=== PATIENT | female | born 1960 | race Caucasian/White ===

== ENCOUNTER → 2016-10-10 | Outpatient (CLI) | payer BC, OTHER ==
--- NOTE | 2016-10-11 11:54 | MM ---
Reason for exam: screening (asymptomatic). Last mammogram was performed 1 year and 1 month ago. History: Patient is postmenopausal. Took hormonal contraceptives for 3 years beginning at age 22. Physical Findings: A clinical breast exam by your physician is recommended on an annual basis and results should be correlated with mammographic findings. MG Screening Mammo w CAD Bilateral CC and MLO view(s) were taken. Prior study comparison: August 27, 2015, right breast MG 3d work up w/cad RT. August 25, 2015, bilateral MG screening mammo w CAD. July 07, 2014, bilateral MG screening mammo w CAD. June 24, 2013, bilateral digital screening mammo w/CAD. The breast tissue is heterogeneously dense. This may lower the sensitivity of mammography. No significant changes when compared with prior studies. ASSESSMENT: Negative, BI-RAD 1 RECOMMENDATION: Routine screening mammogram of both breasts in 1 year.
== END | disposition home or self-care (01) ==
LOC: RADMAMWWP 07:36
PROVIDERS: ATTEND Obstetrics & Gynecology
DX: Z12.31 Encounter for screening mammogram for malignant neoplasm of breast (principal)

== ENCOUNTER → 2016-10-10 | Outpatient (CLI) | payer BC, OTHER ==
[2016-10-10 08:15] LABS: Basophils % (A) 1 %; CH 30.9; CHCM 33.6; Eosinophils # (A) 0.1 k/uL (0-0.7); Eosinophils % (A) 1 %; HCT 42.9 % (34.0-46.0); HDW 2.62; HGB 14.2 gm/dL (11.4-16.0); Luc % (Auto) 2; Lymphocytes # (A) 1.1 k/uL (1.0-4.8); Lymphocytes % (A) 23 %; MCH 30.6 pg (25.0-35.0); MCHC 33.1 g/dL (31.0-37.0); MCV 92.3 fL (80.0-100.0); Mean Platelet Volume 6.7; Monocytes # (A) 0.3 k/uL (0-1.0); Monocytes % (A) 5 %; Neutrophils # (A) 3.4 k/uL (1.3-7.7); Neutrophils % (A) 68 %; RBC 4.64 m/uL (3.80-5.40); WBC 4.9 k/uL (3.8-10.6); WBC (Perox) 5.57
[2016-10-10 08:32] LABS: ALT 45 U/L (9-52); AST 34 U/L (14-36); Alkaline Phosphatase 72 U/L (38-126); Anion Gap 7 mmol/L; Blood Urea Nitrogen 16 mg/dL (7-17); Calcium 9.5 mg/dL (8.4-10.2); Carbon Dioxide 29 mmol/L (22-30); Chloride 106 mmol/L (98-107); Cholesterol 208 mg/dL (<200); Glucose 101 mg/dL (74-99); HDL Cholesterol 65 mg/dL (40-60); Non-African American GFR(MDRD) >60 (>60 ml/min/1.73 sqM); Sodium 142 mmol/L (137-145); Total Bilirubin 0.7 mg/dL (0.2-1.3); Total Protein 6.9 g/dL (6.3-8.2); Triglycerides 68 mg/dL (<150)
== END ==
LOC: LABWHC1 07:17
PROVIDERS: ATTEND Internal Medicine
DX: Z00.00 Encounter for general adult medical examination without abnormal findings (principal)
CPT/HCPCS: 36415; 80053; 80061; 82306; 84439; 84443; 85025

== ENCOUNTER → 2017-10-09 | Outpatient (CLI) | payer BC, OTHER ==
[2017-10-09 09:48] LABS: Basophils % (A) 1 %; Eosinophils % (A) 1 %; HCT 42.5 % (34.0-46.0); HGB 13.8 gm/dL (11.4-16.0); Lymphocytes # (A) 0.9 k/uL (1.0-4.8); Lymphocytes % (A) 24 %; MCH 29.5 pg (25.0-35.0); MCHC 32.4 g/dL (31.0-37.0); MCV 90.8 fL (80.0-100.0); Mean Platelet Volume 6.7; Monocytes # (A) 0.2 k/uL (0-1.0); Monocytes % (A) 5 %; Neutrophils # (A) 2.6 k/uL (1.3-7.7); Neutrophils % (A) 66 %; Platelet Count 271 k/uL (150-450); RBC 4.68 m/uL (3.80-5.40); RDW 13.1 % (11.5-15.5); WBC 3.9 k/uL (3.8-10.6)
[2017-10-09 09:58] LABS: ALT 33 U/L (9-52); AST 22 U/L (14-36); Alkaline Phosphatase 88 U/L (38-126); Anion Gap 10 mmol/L; Blood Urea Nitrogen 18 mg/dL (7-17); Calcium 9.4 mg/dL (8.4-10.2); Carbon Dioxide 28 mmol/L (22-30); Chloride 104 mmol/L (98-107); Cholesterol 198 mg/dL (<200); Glucose 96 mg/dL (74-99); HDL Cholesterol 46 mg/dL (40-60); LDL Cholesterol,Calculated 129 mg/dL (0-99); Potassium 4.6 mmol/L (3.5-5.1); Sodium 142 mmol/L (137-145); Total Bilirubin 0.6 mg/dL (0.2-1.3); Total Protein 6.9 g/dL (6.3-8.2); Triglycerides 113 mg/dL (<150)
[2017-10-09 10:14] LABS: T4, Free (Free Thyroxine) 1.21 ng/dL (0.78-2.19)
== END | disposition home or self-care (01) ==
LOC: LABWHC1 09:03
PROVIDERS: ATTEND Internal Medicine
DX: Z00.00 Encounter for general adult medical examination without abnormal findings (principal); E78.5 Hyperlipidemia, unspecified; E55.9 Vitamin D deficiency, unspecified
CPT/HCPCS: 36415; 80053; 80061; 82306; 84439; 84443; 85025

== ENCOUNTER → 2017-11-10 | Outpatient (CLI) | payer BC, OTHER ==
--- NOTE | 2017-11-13 10:55 | MM ---
Reason for exam: screening (asymptomatic). Last mammogram was performed 1 year and 1 month ago. History: Patient is postmenopausal. Took hormonal contraceptives for 3 years beginning at age 22. Physical Findings: A clinical breast exam by your physician is recommended on an annual basis and results should be correlated with mammographic findings. MG Screening Mammo w CAD Bilateral CC and MLO view(s) were taken. Prior study comparison: October 10, 2016, bilateral MG screening mammo w CAD. August 27, 2015, right breast MG 3d work up w/cad RT. The breast tissue is heterogeneously dense. This may lower the sensitivity of mammography. No suspicious abnormality. No significant changes when compared with prior studies. ASSESSMENT: Negative, BI-RAD 1 RECOMMENDATION: Routine screening mammogram of both breasts in 1 year.
== END | disposition home or self-care (01) ==
LOC: RADMAMWWP 07:29
PROVIDERS: ATTEND Obstetrics & Gynecology
DX: Z12.31 Encounter for screening mammogram for malignant neoplasm of breast (principal)
CPT/HCPCS: 77067

== ENCOUNTER → 2017-11-21 | Outpatient (CLI) | payer BC, OTHER ==
--- NOTE | 2017-11-21 08:48 | US ---
EXAMINATION TYPE: US kidneys/renal and bladder DATE OF EXAM: 11/21/2017 COMPARISON: NONE CLINICAL HISTORY: 57-year-old female N30.21 Chronic cystitis. 2 UTIs. Family history of RCC. Technique: Multiple sonographic images of the kidneys and bladder are obtained. FINDINGS: Right Kidney: 9.0 x 3.9 x 5.3 cm without hydronephrosis. Left Kidney: 9.7 x 4.4 x 6.0 cm without hydronephrosis. Bladder: wnl Bilateral Jets seen: Yes IMPRESSION: No hydronephrosis.
== END | disposition home or self-care (01) ==
LOC: RADUSWWP 07:40
PROVIDERS: ATTEND Urology
DX: N30.21 Other chronic cystitis with hematuria (principal)
CPT/HCPCS: 76770

== ENCOUNTER → 2018-10-11 | Outpatient (CLI) | payer BC, OTHER ==
[2018-10-11 10:15] LABS: Basophils % (A) 1 %; Eosinophils # (A) 0.1 k/uL (0-0.7); Eosinophils % (A) 2 %; HCT 40.4 % (34.0-46.0); HGB 13.3 gm/dL (11.4-16.0); Lymphocytes # (A) 1.1 k/uL (1.0-4.8); Lymphocytes % (A) 33 %; MCHC 33.1 g/dL (31.0-37.0); MCV 90.7 fL (80.0-100.0); Mean Platelet Volume 6.8; Monocytes # (A) 0.2 k/uL (0-1.0); Monocytes % (A) 7 %; Neutrophils # (A) 1.8 k/uL (1.3-7.7); Neutrophils % (A) 56 %; Platelet Count 270 k/uL (150-450); RBC 4.45 m/uL (3.80-5.40); WBC 3.3 k/uL (3.8-10.6)
[2018-10-11 17:14] LABS: Albumin 4.4 g/dL (3.80-4.90); Albumin/Globulin Ratio 2.2 (1.60-3.17); Anion Gap 6.8 mmol/L (4.00-12.00); Calcium 9.3 mg/dL (8.7-10.3); Carbon Dioxide 26.2 mmol/L (21.6-31.8); LDL Cholesterol,Calculated 127.8 mg/dL (0.0-131.0); Potassium 4.6 mmol/L (3.5-5.5); Total Bilirubin 0.6 mg/dL (0.3-1.2); Total Protein 6.4 g/dL (6.2-8.2); VLDL Calculation 17.2 mg/dL (5.00-40.00)
[2018-10-11 17:18] LABS: T4, Free (Free Thyroxine) 1.1 ng/dL (0.80-1.80)
== END | disposition home or self-care (01) ==
LOC: LABWHC1 09:35
PROVIDERS: ATTEND Internal Medicine
DX: Z00.00 Encounter for general adult medical examination without abnormal findings (principal); E55.9 Vitamin D deficiency, unspecified; E78.5 Hyperlipidemia, unspecified
CPT/HCPCS: 36415; 80053; 80061; 82306; 84439; 84443; 85025

== ENCOUNTER → 2018-11-30 | Outpatient (CLI) | payer BC, OTHER ==
--- NOTE | 2018-12-04 09:24 | MM ---
Reason for exam: screening (asymptomatic). Last mammogram was performed 1 year and 1 month ago. History: Patient is postmenopausal. Took hormonal contraceptives for 3 years beginning at age 22. Physical Findings: A clinical breast exam by your physician is recommended on an annual basis and results should be correlated with mammographic findings. MG Screening Mammo w CAD Bilateral CC and MLO view(s) were taken. Prior study comparison: November 10, 2017, bilateral MG screening mammo w CAD. October 10, 2016, bilateral MG screening mammo w CAD. The breast tissue is heterogeneously dense. This may lower the sensitivity of mammography. There is no discrete abnormality. No significant changes when compared with prior studies. ASSESSMENT: Benign, BI-RAD 2 RECOMMENDATION: Routine screening mammogram of both breasts in 1 year.
== END ==
LOC: RADMAMWWP 07:32
PROVIDERS: ATTEND Obstetrics & Gynecology
DX: Z12.31 Encounter for screening mammogram for malignant neoplasm of breast (principal)
CPT/HCPCS: 77067

== ENCOUNTER → 2019-10-14 | Outpatient (CLI) | payer BC, OTHER ==
[2019-10-14 10:56] LABS: Basophils % (A) 0 %; Eosinophils % (A) 1 %; HGB 13.9 gm/dL (11.4-16.0); Lymphocytes # (A) 1.2 k/uL (1.0-4.8); Lymphocytes % (A) 30 %; MCH 29.6 pg (25.0-35.0); MCHC 33.1 g/dL (31.0-37.0); MCV 89.3 fL (80.0-100.0); Monocytes # (A) 0.2 k/uL (0-1.0); Monocytes % (A) 5 %; Neutrophils # (A) 2.5 k/uL (1.3-7.7); Neutrophils % (A) 62 %; Platelet Count 287 k/uL (150-450); RBC 4.71 m/uL (3.80-5.40); RDW 12.4 % (11.5-15.5); WBC 4.1 k/uL (3.8-10.6)
[2019-10-14 16:53] LABS: African American GFR (CKD) 94.9 (60.0-200.0); Albumin 4.5 g/dL (3.80-4.90); Albumin/Globulin Ratio 2.25 (1.60-3.17); Anion Gap 6.6 mmol/L (4.00-12.00); BUN/Creat Ratio 17.5 Ratio (12.00-20.00); Calcium 9.6 mg/dL (8.7-10.3); Carbon Dioxide 25.4 mmol/L (21.6-31.8); Chol/HDL Ratio 3.64; LDL Cholesterol,Calculated 123.8 mg/dL (0.0-131.0); Non-African American GFR(CKD) 81.8 (60.0-200.0); Potassium 5.1 mmol/L (3.5-5.5); Total Bilirubin 0.6 mg/dL (0.3-1.2); Total Protein 6.5 g/dL (6.2-8.2); VLDL Calculation 16.2 mg/dL (5.00-40.00)
[2019-10-14 17:01] LABS: T4, Free (Free Thyroxine) 1.4 ng/dL (0.80-1.80)
== END | disposition home or self-care (01) ==
LOC: LABWHC1 09:24
PROVIDERS: ATTEND Internal Medicine
DX: Z00.00 Encounter for general adult medical examination without abnormal findings (principal); E78.5 Hyperlipidemia, unspecified; E55.9 Vitamin D deficiency, unspecified
CPT/HCPCS: 36415; 80053; 80061; 82306; 84439; 84443; 85025

== ENCOUNTER → 2020-03-24 | Outpatient (CLI) | payer BC, OTHER ==
--- NOTE | 2020-03-25 12:04 | MM ---
Reason for exam: screening (asymptomatic). Last mammogram was performed 1 year and 4 months ago. History: Patient is postmenopausal. Took hormonal contraceptives for 3 years beginning at age 22. Physical Findings: A clinical breast exam by your physician is recommended on an annual basis and results should be correlated with mammographic findings. MG Screening Mammo w CAD Bilateral CC and MLO view(s) were taken. Prior study comparison: November 30, 2018, bilateral MG screening mammo w CAD. November 10, 2017, bilateral MG screening mammo w CAD. The breast tissue is heterogeneously dense. This may lower the sensitivity of mammography. No significant changes when compared with prior studies. ASSESSMENT: Benign, BI-RAD 2 RECOMMENDATION: Routine screening mammogram of both breasts in 1 year.
== END | disposition home or self-care (01) ==
LOC: RADMAMWWP 07:00
PROVIDERS: ATTEND Obstetrics & Gynecology
DX: Z12.31 Encounter for screening mammogram for malignant neoplasm of breast (principal)
CPT/HCPCS: 77067

== ENCOUNTER → 2020-10-27 | Outpatient (CLI) | payer BC, OTHER ==
[2020-10-27 19:45] LABS: Basophils # (A) 0.03 X 10*3/uL (0.00-0.10); Basophils % (A) 0.6 %; Eosinophils # (A) 0.05 X 10*3/uL (0.04-0.35); HCT 44.4 % (37.2-46.3); HGB 14.3 g/dL (12.0-15.0); Lymphocytes # (A) 1.54 X 10*3/uL (0.90-5.00); Lymphocytes % (A) 29.7 %; MCH 29.9 pg (27.0-32.0); MCHC 32.2 g/dL (32.0-37.0); MCV 92.7 fL (80.0-97.0); Mean Platelet Volume 10.1 fL (9.5-12.2); Monocytes # (A) 0.41 X 10*3/uL (0.20-1.00); Monocytes % (A) 7.9 %; Neutrophils # (A) 3.15 X 10*3/uL (1.80-7.70); Neutrophils % (A) 60.6 %; Platelet Count 292 X 10*3/uL (140-440); RBC 4.79 X 10*6/uL (4.10-5.20); RDW 12.8 % (11.5-14.5); WBC 5.19 X 10*3/uL (4.50-10.00)
[2020-10-27 21:00] LABS: T4, Free (Free Thyroxine) 1.1 ng/dL (0.80-1.80)
[2020-10-27 22:24] LABS: African American GFR (CKD) 71.9 (60.0-200.0); Albumin 4.6 g/dL (3.80-4.90); Anion Gap 11.3 mmol/L (4.00-12.00); Calcium 9.7 mg/dL (8.7-10.3); Carbon Dioxide 24.7 mmol/L (21.6-31.8); Chol/HDL Ratio 3.86; Globulin 2.3 g/dL (1.6-3.3); Non-African American GFR(CKD) 62.1 (60.0-200.0); Potassium 5.5 mmol/L (3.5-5.5); Total Bilirubin 0.5 mg/dL (0.2-1.2); Total Protein 6.9 g/dL (6.2-8.2)
== END | disposition home or self-care (01) ==
LOC: LABWHC1 10:14
PROVIDERS: ATTEND Internal Medicine
DX: Z00.00 Encounter for general adult medical examination without abnormal findings (principal)
CPT/HCPCS: 36415; 80053; 80061; 84439; 84443; 85025

== ENCOUNTER → 2021-03-13 | Outpatient (CLI) | payer BC, OTHER ==
[2021-03-13 08:43] LABS: Basophils % (A) 1 %; Eosinophils # (A) 0.1 k/uL (0-0.7); Eosinophils % (A) 1 %; HCT 42.4 % (34.0-46.0); HGB 14.7 gm/dL (11.4-16.0); Lymphocytes % (A) 23 %; MCH 32.1 pg (25.0-35.0); MCHC 34.7 g/dL (31.0-37.0); MCV 92.3 fL (80.0-100.0); Mean Platelet Volume 7.4; Monocytes # (A) 0.3 k/uL (0-1.0); Monocytes % (A) 6 %; Neutrophils % (A) 68 %; Platelet Count 270 k/uL (150-450); RBC 4.59 m/uL (3.80-5.40); RDW 12.4 % (11.5-15.5); WBC 4.5 k/uL (3.8-10.6)
[2021-03-13 08:52] LABS: African American GFR (CKD) >90 (>60 ml/min/1.73 sqM); Anion Gap 6 mmol/L; Blood Urea Nitrogen 20 mg/dL (7-17); Carbon Dioxide 25 mmol/L (22-30); Chloride 107 mmol/L (98-107); Glucose 100 mg/dL (74-99); Non-African American GFR(CKD) 83 (>60 ml/min/1.73 sqM); Potassium 4.5 mmol/L (3.5-5.1); Sodium 138 mmol/L (137-145)
== END | disposition home or self-care (01) ==
LOC: LABPAT 07:59
PROVIDERS: ATTEND Obstetrics & Gynecology
DX: Z01.812 Encounter for preprocedural laboratory examination (principal); N81.10 Cystocele, unspecified; N81.6 Rectocele
CPT/HCPCS: 80051; 82565; 82947; 84520; 85025; 87077; 87086; 87186; 93005

== ENCOUNTER 2021-03-23 05:39 | Observation (INO) | payer BC, OTHER ==
[2021-03-18 11:10] VITALS: BMI 27.7
[~2021-03-23 05:39] MED LIST: DEXAMETHASONE SOD PHOSPHATE 4 MG/ML 1 ML VIAL IV ONE; LACTATED RINGERS 1,000 ML IV SCH; LIDOCAINE 1% (10MG/ML) FOR IV START INTRADERMA PRN; SCOPOLAMINE 1.5MG/72HR PATCH TRANSDERM ONE
[2021-03-23] MEDS ORDERED: ONDANSETRON 4 MG/2 ML VIAL IVP PRN ×2 (07:00→08:38)
[2021-03-23] MEDS ORDERED: HYDROmorphone 0.5 MG/0.5 ML SYRINGE IVP PRN (07:00)
[2021-03-23] MEDS ORDERED: MIDAZOLAM 2 MG/2 ML VIAL IVP ONE ×2 (07:22)
[2021-03-23] MEDS ORDERED: fentaNYL (PF) 50 MCG/ML 2 ML AMP IVP ONE (07:22)
[2021-03-23] MEDS ORDERED: ePHEDrine SULFATE/0.9% NACL/PF 50 MG/5 ML SYRINGE IV ONE (07:30)
[2021-03-23] MEDS ORDERED: SUCCINYLCHOLINE CHLORIDE 100 MG/5 ML SYR IV ONE (07:30)
[2021-03-23] MEDS ORDERED: MORPHINE SULFATE (PF) 0.3 MG/0.3 ML SYR ONE (07:30)
[2021-03-23] MEDS ORDERED: PROPOFOL 10 MG/ML 20 ML VIAL IV ONE (07:30)
[2021-03-23] MEDS ORDERED: LIDOCAINE 1% INJ 10MG/ML (20 ML MDV) ONE (07:30)
[2021-03-23] MEDS ORDERED: MIDAZOLAM 2 MG/2 ML VIAL ONE (07:30)
[2021-03-23] MEDS ORDERED: VASOPRESSIN 20 UNIT/ML 1 ML VIAL SQ ONE (07:51)
[2021-03-23] MEDS ORDERED: BACITRACIN ZINC 500 UNIT/GM OINT 28.4 GM TUBE TOPICAL ONE ×2 (08:09→08:26)
[2021-03-23] MEDS ORDERED: LACTATED RINGERS 1,000 ML IV ONE (08:25)
[2021-03-23] MEDS ORDERED: SIMETHICONE 80 MG CHEWABLE PO PRN (08:38)
[2021-03-23] MEDS ORDERED: METOCLOPRAMIDE 5 MG/ML 2 ML VIAL IVP PRN (08:38)
[2021-03-23] MEDS ORDERED: IBUPROFEN 600 MG TAB PO PRN (08:38)
[2021-03-23] MEDS ORDERED: diphenhydrAMINE 50 MG/ML 1 ML VIAL IVP PRN (08:38)
[2021-03-23] MEDS ORDERED: ONDANSETRON 4 MG/2 ML VIAL ONE (08:46)
[2021-03-23] MEDS ORDERED: ONDANSETRON 4 MG/2 ML VIAL IVP ONE (08:50)
--- NOTE | 2021-03-23 08:50 | P.OP ---
Date of Procedure: 03/23/21 Preoperative Diagnosis: #1. Symptomatic cystocele #2. Symptomatic rectocele Postoperative Diagnosis: Same Procedure(s) Performed: #1. Anterior colporrhaphy #2. Posterior colporrhaphy Anesthesia: FIDELINA Surgeon: Rich Mckeon Carousel Attendant #1: Sylvia Funk Estimated Blood Loss (ml): 50 IV fluids (ml): 800 Urine output (ml): 50 Pathology: none sent Condition: stable Disposition: PACU Operative Findings: Preoperatively, the patient was noted to have a grade 3 cystocele at rest and grade 2+ rectocele. The uterus appeared to be recently well supported prior to anesthesia. The uterus was left in place secondary to a significant history of multiple abdominal surgeries with ruptured diverticular abscess and the significant concern for possible and probable adhesive disease involving the pelvic organs. Clear yolanda urine was noted both before and after the case. Description of Procedure: The patient was prepped and draped in usual fashion after general endotracheal anesthesia was administered by the anesthesiologist. A weighted speculum was placed and the bladder was drained of approximately 50 mL of clear yolanda urine. The vaginal mucosa above and lateral to the cervix was grasped with Allis clamps and the vesicovaginal mucosa infused with diluted Pitressin solution. An incision was made from angle to angle above the cervix with a scalpel and the Allis clamps moved closer to the midline. The vesicovaginal mucosa was then undermined in the midline using a Metzenbaum scissors and divided from the cervical apex to the urethral apex. The mucosa was then dissected both sharply and bluntly from the underlying tissues. A Lafleur catheter was then placed and clear yolanda urine noted. After adequate dissection had been carried out, serial Pau plication stitches were placed from the urethral apex to the cervical apex using 2-0 PDS. The intervening redundant vaginal mucosa was trimmed from the cervix to the urethral apex and discarded bilaterally. The mucosa was then closed with a running locking stitch of 2-0 Vicryl from the urethral apex to the cervix. The repair appeared excellent. The weighted speculum was then removed and Allis clamps placed approximately 3-4 cm apart on the hymeneal ring at approximately 5:00 and 7:00. The rectovaginal mucosa was then infused with diluted Pitressin solution from the external margin to the apex of the intended dissection. A scalpel was utilized to remove a triangle shaped wedge of skin over the perineal body which was discarded. The Allis clamps were moved more to the midline and the rectovaginal mucosa undermined in the midline and divided using Metzenbaum scissors to the apex of the dissection with Allises placed along the margins. The rectovaginal mucosa was then sharply and bluntly dissected from the underlying tissues. Once adequate dissection had been carried out, serial Pau plication stitches were placed from the apex of the dissection to the vaginal opening with 2-0 PDS. Again, the intervening redundant vaginal mucosa was trimmed and discarded. The vaginal mucosa was then closed with a running locking stitch of 2-0 Vicryl from the apex to the vaginal opening. The remaining open tissue over the perineal body was closed continuously with the vaginal closure in the standard fashion of perineoplasty. The repair again appeared to be excellent. The vagina was packed with one-inch iodophor gauze covered with bacitracin ointment. Estimated blood loss for the entire case was approximately 50 mL. There were no complications. All sponge, instrument, and needle counts were correct. The patient tolerated the procedure well and proceeded to the recovery room in stable condition.
[2021-03-23] MEDS: LACTATED RINGERS 1,000 ML IV SCH ×2 (10:26→15:40)
[2021-03-23] MEDS ORDERED: ALBUTEROL NEBULIZED 2.5 MG/3 ML INHALATION PRN (10:30)
[2021-03-23] MEDS ORDERED: ALPRAZolam 0.25 MG TAB PO PRN (10:30)
[2021-03-23] MEDS ORDERED: LORATADINE 10 MG TAB PO PRN (10:30)
[2021-03-23] MEDS: SENNOSIDES-DOCUSATE SODIUM 1 EACH TAB PO SCH ×2 (10:47→21:42)
[2021-03-23] MEDS ORDERED: PROAIR 90 MCG INHALATION PRN (10:57)
[2021-03-23] MEDS ORDERED: ALLEGRA PO PRN (10:59)
--- NOTE | 2021-03-23 11:14 | P.ANPRN ---
Procedure Note - Anesthesia - Epidural/Spinal Spinal Time Out Performed: Yes Date of Procedure: 03/23/21 Procedure Start Time: Procedure Stop Time: Location of Patient: PreOp Indication: Acute Post-Operative Pain Sedation Type: Sedate with meaningful contact maintained Preparation: Sterile Prep Position: Sitting Catheter: None Needle Guage: 25 Injectate: Other (Duramorph 300 mcg + fentanyl 25mcg) Blood Aspirated: No Pain Paresthesia on Injection Noted: No Events: Uneventful and Well Tolerated
[2021-03-23] MEDS: NITROFURANTOIN MONOHYD/M-CRYST 100 MG CAP PO SCH ×2 (11:29→20:05)
[2021-03-23 15:47] VITALS: BP 107/66; PULSE 77; TEMP 98.3
[2021-03-23] MEDS: CALCIUM CARBONATE 500 MG CHEWABLE PO PRN ×2 (15:58→19:59)
[2021-03-23 15:59] VITALS: RESP 15
[2021-03-23] MEDS ORDERED: PANTOPRAZOLE 40 MG TABLET PO SCH ×2 (18:00→21:00)
[2021-03-23] MEDS: KETOROLAC 15 MG/ML 1 ML VIAL IVP PRN (18:22)
[2021-03-23] MEDS ORDERED: SYMBICORT 160-4.5 MCG INHALER INHALATION SCH (20:00)
[2021-03-23] MEDS ORDERED: SYMBICORT INHALATION SCH (20:00)
[2021-03-23] MEDS ORDERED: MONTELUKAST 10 MG TAB PO SCH (21:00)
[2021-03-24] MEDS: KETOROLAC 15 MG/ML 1 ML VIAL IVP PRN ×2 (01:07→06:07)
[2021-03-24] MEDS: LACTATED RINGERS 1,000 ML IV SCH (01:14)
[2021-03-24 06:11] LABS: Basophils % (A) 0 %; Eosinophils % (A) 0 %; HCT 38.7 % (34.0-46.0); HGB 12.9 gm/dL (11.4-16.0); Lymphocytes % (A) 11 %; MCH 31.2 pg (25.0-35.0); MCHC 33.3 g/dL (31.0-37.0); MCV 93.7 fL (80.0-100.0); Mean Platelet Volume 7.5; Monocytes # (A) 0.6 k/uL (0-1.0); Monocytes % (A) 6 %; Neutrophils # (A) 7.8 k/uL (1.3-7.7); Neutrophils % (A) 82 %; Platelet Count 234 k/uL (150-450); RBC 4.13 m/uL (3.80-5.40); RDW 12.7 % (11.5-15.5); WBC 9.6 k/uL (3.8-10.6)
[2021-03-24] MEDS: NITROFURANTOIN MONOHYD/M-CRYST 100 MG CAP PO SCH (07:49)
--- NOTE | 2021-03-24 08:56 | P.DS ---
Providers Date of admission: 03/24/21 01:29 Expected date of discharge: 03/24/21 Attending physician: Rich Mckeon Primary care physician: Vaibhav Eric - Discharge Diagnosis(es) (1) Cystocele Current Visit: Yes Status: Acute (2) Rectocele Current Visit: Yes Status: Acute Hospital Course: The patient is a 61-year-old multiparous woman who presented the office with relatively long-standing history of known cystocele or rectocele which is increased over the last 6 months to year to the point that it is significantly more uncomfortable this time and symptomatic in nature. She does report that occasionally her bladder bulges 2 and perhaps slightly beyond the opening the vagina. Examination the office demonstrated the uterus to be adequately supported. She also has an extensive history of significant abdominal surgery with a ruptured diverticular abscess subsequent loss to me and taken with reanastomosis. As a result, we will opted not to enter the abdomen under current circumstances and repair only the defects. She has requested definitive therapy for her prolapse. She was taken the operating room where she underwent anterior and posterior colporrhaphy in an incompetent fashion. Her postoperative course has been unremarkable to she did have some nausea for most of daily surgery. She was tolerating regular diet by the morning of postoperative day #1. She did have her catheter removed and was only able to void half of her urine volume on the first attempt. Further attempts are pending and we will make certain that she is able to void at least two thirds of her volume prior to being discharged. She has otherwise been deemed stable for discharge on post operative day #2 and will be discharged home to follow-up in the office in 2 weeks for recheck in 6 weeks routinely. Discharge instructions included calling for any significantly increased bleeding, fever, pain, or any other conditions that concerned her. Her primary instruction was to do no heavy lifting over the next 6-8 weeks and to abstain from anything in the vagina over the same period of time. She understood her instructions and agrees follow up as noted above. Discharge medications included only her normal home medications as well as [id number] analgesic pain medications as needed. Discharge hemoglobin and hematocrit were 12.9 and 30.7 respectively. Procedures: #1. Anterior colporrhaphy #2. Posterior colporrhaphy Patient Condition at Discharge: Stable Plan - Discharge Summary Discharge Rx Participant: No New Discharge Prescriptions: No Action Montelukast [Singulair] 10 mg PO HS Fluticasone Propionate [Flonase] 1 spray EA NOSTRIL HS Aspirin 81 mg PO DAILY Esomeprazole Magnesium [NexIUM] 40 mg PO HS Calcium Carbonate/Vitamin D3 [Calcium 600 mg-Vit D3 10 mcg (400 Unit)] 1 each PO BID Budesonide-Formot 160-4.5 Mcg [Symbicort 160-4.5 Mcg Inhaler] 1 puff INHALATION HS Atorvastatin [Lipitor] 10 mg PO HS Albuterol Sulfate [Proair Hfa] 1 - 2 puff INHALATION Q6HR PRN PRN Reason: asthma sx ALPRAZolam [Xanax] 0.25 mg PO TID PRN PRN Reason: Anxiety Nitrofurantoin Monohyd/M-Cryst [Macrobid] 100 mg PO Q12HR Ibuprofen [Advil] 200 mg PO Q8HR PRN PRN Reason: Pain Cholecalciferol [Vitamin D3 (25 Mcg = 1000 Iu)] 50 mcg PO DAILY Fexofenadine HCl [Teresita Allergy] 60 mg PO BID PRN PRN Reason: allergy sx polyethylene glycoL 3350 [Miralax] 17 gm PO DAILY PRN PRN Reason: Constipation Discharge Medication List Aspirin 81 mg PO DAILY 01/17/14 [History] Esomeprazole Magnesium [NexIUM] 40 mg PO HS 01/17/14 [History] Fluticasone Propionate [Flonase] 1 spray EA NOSTRIL HS 01/17/14 [History] Montelukast [Singulair] 10 mg PO HS 01/17/14 [History] ALPRAZolam [Xanax] 0.25 mg PO TID PRN 03/18/21 [History] Albuterol Sulfate [Proair Hfa] 1 - 2 puff INHALATION Q6HR PRN 03/18/21 [History] Atorvastatin [Lipitor] 10 mg PO HS 03/18/21 [History] Budesonide-Formot 160-4.5 Mcg [Symbicort 160-4.5 Mcg Inhaler] 1 puff INHALATION HS 03/18/21 [History] Calcium Carbonate/Vitamin D3 [Calcium 600 mg-Vit D3 10 mcg (400 Unit)] 1 each PO BID 03/18/21 [History] Cholecalciferol [Vitamin D3 (25 Mcg = 1000 Iu)] 50 mcg PO DAILY 03/18/21 [History] Fexofenadine HCl [Teresita Allergy] 60 mg PO BID PRN 03/18/21 [History] Ibuprofen [Advil] 200 mg PO Q8HR PRN 03/18/21 [History] Nitrofurantoin Monohyd/M-Cryst [Macrobid] 100 mg PO Q12HR 03/18/21 [History] polyethylene glycoL 3350 [Miralax] 17 gm PO DAILY PRN 03/18/21 [History] Follow up Appointment(s)/Referral(s): Rich Mckeon MD [STAFF PHYSICIAN] - 2 Weeks Discharge Disposition: HOME SELF-CARE
--- NOTE | 2021-03-24 09:09 | P.PN ---
Progress Note - Text 03/24/21 633am 52 year old female s/p rectocoele repair,pt seen and evaluated for post op pain control, pt has a vas of 0. she has no c/o n/v or pruritis.doing well, going home today.
== END 2021-03-24 10:20 | disposition home or self-care (01) ==
LOC: OR 05:39 → 4FBP 09:40 → OR 03-24 01:29
PROVIDERS: ADMIT Obstetrics & Gynecology; ATTEND Obstetrics & Gynecology
DX: N81.11 Cystocele, midline (principal); N81.6 Rectocele; J45.909 Unspecified asthma, uncomplicated; E78.5 Hyperlipidemia, unspecified; K21.9 Gastro-esophageal reflux disease without esophagitis; F41.9 Anxiety disorder, unspecified; F32.9 Major depressive disorder, single episode, unspecified; Z79.51 Long term (current) use of inhaled steroids; Z79.899 Other long term (current) drug therapy; Z88.0 Allergy status to penicillin; Z88.5 Allergy status to narcotic agent; Z87.19 Personal history of other diseases of the digestive system; Z86.718 Personal history of other venous thrombosis and embolism; Z90.49 Acquired absence of other specified parts of digestive tract; Z98.890 Other specified postprocedural states; Z83.3 Family history of diabetes mellitus; Z80.51 Family history of malignant neoplasm of kidney; Z82.49 Family history of ischemic heart disease and other diseases of the circulatory system
CPT/HCPCS: 86900; 86901; 85025; 86850; 36415; 57260; G0378; J2250; J1200; J1100; J2765; J0690; J2405; J2001; J2274; J3010; J1885 ×2; J0330; J2704

== ENCOUNTER → 2021-05-04 | Outpatient (CLI) | payer BC, OTHER ==
--- NOTE | 2021-05-04 12:08 | MM ---
Reason for exam: screening (asymptomatic). Last mammogram was performed 1 year and 1 month ago. History: Patient is postmenopausal. Took hormonal contraceptives for 3 years beginning at age 22. Physical Findings: A clinical breast exam by your physician is recommended on an annual basis and results should be correlated with mammographic findings. MG 3D Screening Mammo W/Cad Bilateral CC and MLO view(s) were taken. Prior study comparison: March 24, 2020, bilateral MG screening mammo w CAD. November 30, 2018, bilateral MG screening mammo w CAD. November 10, 2017, bilateral MG screening mammo w CAD. The breast tissue is heterogeneously dense. This may lower the sensitivity of mammography. There is no discrete abnormality. ASSESSMENT: Negative, BI-RAD 1 RECOMMENDATION: Routine screening mammogram of both breasts in 1 year.
== END | disposition home or self-care (01) ==
LOC: RADMAMWWP 08:19
PROVIDERS: ATTEND Obstetrics & Gynecology
DX: Z78.0 Asymptomatic menopausal state (principal)
CPT/HCPCS: 77063; 77067

== ENCOUNTER → 2021-05-18 | Day surgery (SDC) | payer BC, OTHER ==
[2021-05-13 10:05] VITALS: BMI 27.7
[~2021-05-18] MED LIST changes: +HYDROmorphone 0.5 MG/0.5 ML SYRINGE IVP PRN; -LACTATED RINGERS 1,000 ML IV SCH; -LIDOCAINE 1% (10MG/ML) FOR IV START INTRADERMA PRN; +ONDANSETRON 4 MG/2 ML VIAL IVP ONE; +PROPOFOL 10 MG/ML 20 ML VIAL IV ONE; -SCOPOLAMINE 1.5MG/72HR PATCH TRANSDERM ONE
[2021-05-18 08:57] VITALS: TEMP 98.1
[2021-05-18] MEDS: LACTATED RINGERS 1,000 ML IV SCH ×2 (09:10→09:52)
--- NOTE | 2021-05-18 09:55 | P.GSHP ---
History of Present Illness H&P Date: 05/18/21 Chief Complaint: Screening, history of polyps Patient her today for colonoscopy. Last colonoscopy 5 years ago. Patient with personal history of colon polyps. Patient underwent Cedeno's procedure with reversal in the past for diverticulitis as well. Family history of colon cancer possibly in her father. Past Medical History Past Medical History: Asthma, GERD/Reflux Additional Past Medical History / Comment(s): diverticulitis History of Any Multi-Drug Resistant Organisms: MRSA Date of last positivie culture/infection: 05/11/15 MDRO Source:: BUTTOCK Past Surgical History: Bowel Resection, Uterine Ablation Additional Past Surgical History / Comment(s): rectocele,cystocele repair. sinus surgery Past Anesthesia/Blood Transfusion Reactions: No Reported Reaction, Motion Sickness Additional Past Anesthesia/Blood Transfusion Reaction / Comment(s): has had scopolamine patches in past Smoking Status: Never smoker - Past Family History Father Family Medical History: Cancer Additional Family Medical History / Comment(s): kidney cancer Mother Family Medical History: Cancer Additional Family Medical History / Comment(s): melanoma skin cancer Medications and Allergies Home Medications Medication Instructions Recorded Confirmed Type Aspirin 81 mg PO DAILY 01/17/14 05/13/21 History Esomeprazole Magnesium [NexIUM] 40 mg PO HS 01/17/14 05/18/21 History Fluticasone Propionate [Flonase] 1 spray EA NOSTRIL HS 01/17/14 05/18/21 History Montelukast [Singulair] 10 mg PO HS 01/17/14 05/18/21 History ALPRAZolam [Xanax] 0.25 mg PO TID PRN 03/18/21 05/18/21 History Albuterol Sulfate [Proair Hfa] 1 - 2 puff INHALATION Q6HR PRN 03/18/21 05/18/21 History Atorvastatin [Lipitor] 10 mg PO HS 03/18/21 05/18/21 History Budesonide-Formot 160-4.5 Mcg 1 puff INHALATION HS 03/18/21 05/18/21 History [Symbicort 160-4.5 Mcg Inhaler] Calcium Carbonate/Vitamin D3 1 each PO BID 03/18/21 05/18/21 History [Calcium 600 mg-Vit D3 10 mcg (400 Unit)] Cholecalciferol [Vitamin D3 (25 50 mcg PO DAILY 03/18/21 05/18/21 History Mcg = 1000 Iu)] Fexofenadine HCl [Teresita Allergy] 60 mg PO BID PRN 03/18/21 05/18/21 History Ibuprofen [Advil] 200 mg PO Q8HR PRN 03/18/21 05/18/21 History polyethylene glycoL 3350 [Miralax] 17 gm PO DAILY PRN 03/18/21 05/18/21 History Allergies Allergy/AdvReac Type Severity Reaction Status Date / Time amoxicillin [From Augmentin] AdvReac Nausea Verified 05/18/21 08:55 clavulanic acid AdvReac Nausea Verified 05/18/21 08:55 [From Augmentin] hydrocodone [From Lortab] AdvReac "makes me Verified 05/18/21 08:55 wired," hyperactive Surgical - Exam Vital Signs Temp Pulse Resp BP Pulse Ox 98.1 F 76 16 129/71 95 05/18/21 08:56 05/18/21 08:56 05/18/21 08:56 05/18/21 08:56 05/18/21 08:56 Physical exam: General: Well-developed, well-nourished HEENT: Normocephalic, sclerae nonicteric Abdomen: Nontender, nondistended Extremities: No edema Neuro: Alert and oriented Assessment and Plan (1) Colon cancer screening Narrative/Plan: Will proceed with colonoscopy Current Visit: Yes Status: Acute Code(s): Z12.11 - ENCOUNTER FOR SCREENING FOR MALIGNANT NEOPLASM OF COLON SNOMED Code(s): 231508664
--- NOTE | 2021-05-18 10:12 | P.PCN ---
Date of Procedure: 05/18/21 Procedure(s) Performed: PREOPERATIVE DIAGNOSIS: Colon cancer screening POSTOPERATIVE DIAGNOSIS: Small descending colon polyp, diverticulosis PROCEDURE: Colonoscopy with biopsy ANESTHESIA: MAC SURGEON: Javed Haddad M.D. SPECIMENS: Descending colon polyp ENDOSCOPIC PROCEDURE: The patient was placed on the endoscopy table in the left decubitus position. The Olympus colonoscope was inserted into the anus and passed under direct visualization to the base of the cecum. The appendiceal orifice was visualized. From that point the scope was slowly withdrawn inspecting all surfaces carefully. There were no neoplastic inflammatory or polypoid lesions throughout the cecum, ascending, or transverse colon. The descending colon a small polyp was seen and removed using the snare with cautery technique. The anastomosis to the rectum was not easily visualized. There was no evidence of stricture formation however. There was mild diverticulosis. Digital rectal examination was normal. The patient was taken to the recovery room in stable condition per anesthesia guidelines. RECOMMENDATIONS: Await biopsy results. Follow-up colonoscopy 5 years.
[2021-05-18 10:45] VITALS: BP 128/76; PULSE 76; RESP 20
== END ==
LOC: ORWHC2ENDO 08:27
PROVIDERS: ATTEND Surgery
DX: Z12.11 Encounter for screening for malignant neoplasm of colon (principal); K63.5 Polyp of colon; K57.30 Diverticulosis of large intestine without perforation or abscess without bleeding; Z86.010 Personal history of colon polyps; Z80.0 Family history of malignant neoplasm of digestive organs; Z87.19 Personal history of other diseases of the digestive system; J45.909 Unspecified asthma, uncomplicated; F32.9 Major depressive disorder, single episode, unspecified; F41.9 Anxiety disorder, unspecified; K21.9 Gastro-esophageal reflux disease without esophagitis; Z90.49 Acquired absence of other specified parts of digestive tract; Z85.528 Personal history of other malignant neoplasm of kidney; Z86.14 Personal history of Methicillin resistant Staphylococcus aureus infection; Z98.890 Other specified postprocedural states; Z80.51 Family history of malignant neoplasm of kidney; Z80.8 Family history of malignant neoplasm of other organs or systems; Z79.51 Long term (current) use of inhaled steroids; Z79.899 Other long term (current) drug therapy; Z79.82 Long term (current) use of aspirin; Z88.5 Allergy status to narcotic agent; Z88.0 Allergy status to penicillin
CPT/HCPCS: 88305; 45385; J2704; 45380

== ENCOUNTER → 2021-05-20 | Outpatient (CLI) | payer BC, OTHER ==
[2021-05-20 14:53] LABS: ALT 35 U/L (8-44); AST 28 U/L (13-35); Albumin 4.4 g/dL (3.8-4.9); Albumin/Globulin Ratio 2.06 (1.60-3.17); Alkaline Phosphatase 78 U/L (41-126); Bilirubin, Conjugated <0.20 mg/dL (0.20-0.40); Globulin 2.1 g/dL (1.6-3.3); LDL Cholesterol,Calculated 76.4 mg/dL (0.0-131.0); Total Protein 6.5 g/dL (6.2-8.2); VLDL Calculation 18.44 mg/dL (5.00-40.00)
== END | disposition home or self-care (01) ==
LOC: LABWHC1 07:55
PROVIDERS: ATTEND Internal Medicine
DX: E78.5 Hyperlipidemia, unspecified (principal)
CPT/HCPCS: 36415; 80061; 80076

== ENCOUNTER → 2021-11-10 | Outpatient (CLI) | payer BC, OTHER ==
[2021-11-10 14:06] LABS: Basophils # (A) 0.03 X 10*3/uL (0.00-0.10); Basophils % (A) 0.6 %; Eosinophils # (A) 0.04 X 10*3/uL (0.04-0.35); Eosinophils % (A) 0.8 %; HGB 13.7 g/dL (12.0-15.0); Immature Grans, Automated 0.4 %; Lymphocytes # (A) 1.23 X 10*3/uL (0.90-5.00); Lymphocytes % (A) 25.8 %; MCH 30.4 pg (27.0-32.0); MCHC 32.6 g/dL (32.0-37.0); MCV 93.1 fL (80.0-97.0); Mean Platelet Volume 10.4 fL (9.5-12.2); Monocytes # (A) 0.31 X 10*3/uL (0.20-1.00); Monocytes % (A) 6.5 %; NRBC Per 100 WBC 0 /100 WBCS (0.0-0.0); Neutrophils # (A) 3.14 X 10*3/uL (1.80-7.70); Neutrophils % (A) 65.9 %; Platelet Count 249 X 10*3/uL (140-440); RBC 4.51 X 10*6/uL (4.10-5.20); RDW 12.5 % (11.5-14.5); WBC 4.77 X 10*3/uL (4.50-10.00)
[2021-11-10 14:53] LABS: ALT 22 U/L (8-44); AST 22 U/L (13-35); African American GFR (CKD) 93.5 (60.0-200.0); Albumin 4.4 g/dL (3.8-4.9); Albumin/Globulin Ratio 1.83 (1.60-3.17); Alkaline Phosphatase 70 U/L (41-126); BUN/Creat Ratio 20.13 Ratio (12.00-20.00); Blood Urea Nitrogen 16.1 mg/dL (9.0-27.0); Calcium 9.4 mg/dL (8.7-10.3); Carbon Dioxide 24.9 mmol/L (20.0-27.5); Chloride 104 mmol/L (96-109); Globulin 2.4 g/dL (1.6-3.3); Glucose 98 mg/dL (70-110); Non-African American GFR(CKD) 80.7 (60.0-200.0); Potassium 4.7 mmol/L (3.5-5.5); Sodium 139 mmol/L (135-145); Total Protein 6.8 g/dL (6.2-8.2)
[2021-11-10 14:54] LABS: Chol/HDL Ratio 2.37 Ratio
== END | disposition home or self-care (01) ==
LOC: LABWHC1 10:05
PROVIDERS: ATTEND Internal Medicine
DX: Z00.00 Encounter for general adult medical examination without abnormal findings (principal); E78.5 Hyperlipidemia, unspecified
CPT/HCPCS: 36415; 80053; 80061; 84439; 84443; 85025

== ENCOUNTER → 2022-05-16 | Outpatient (CLI) | payer BC, OTHER ==
--- NOTE | 2022-05-16 11:06 | MM ---
Reason for Exam: Screening (asymptomatic). Last mammogram was performed 1 year(s) and 1 month(s) ago. Patient History: Menarche at age 14. First Full-Term at age 22. Postmenopausal. Hormonal Contraceptives, starting at age 22 for 3 years. Risk Values: Glendy 5 year model risk: 1.3%. NCI Lifetime model risk: 6.6%. Prior Study Comparison: 11/30/2018 Bilateral Screening Mammogram, [facility]. 03/24/2020 Bilateral Screening Mammogram, [facility]. 05/04/2021 Bilateral Screening Mammogram, [facility]. Tissue Density: The breast tissue is heterogeneously dense. This may lower the sensitivity of mammography. Findings: Analyzed By CAD. Benign-appearing bilateral axillary lymph nodes are redemonstrated. There is no suspicious group of microcalcifications or new suspicious mass in either breast. Overall Assessment: Negative, BI-RAD 1 Management: Screening Mammogram of both breasts in 1 year. A clinical breast exam by your physician is recommended on an annual basis and results should be correlated with mammographic findings. Electronically signed and approved by: Johann Fink M.D.
== END | disposition home or self-care (01) ==
LOC: RADMAMWWP 09:44
PROVIDERS: ATTEND Obstetrics & Gynecology
DX: Z12.31 Encounter for screening mammogram for malignant neoplasm of breast (principal); Z78.0 Asymptomatic menopausal state
CPT/HCPCS: 77063; 77067

== ENCOUNTER → 2023-01-04 | Outpatient (CLI) | payer BC, OTHER ==
[2023-01-04 10:50] LABS: Basophils # (A) 0.03 X 10*3/uL (0.00-0.10); Basophils % (A) 0.6 %; Eosinophils # (A) 0.06 X 10*3/uL (0.04-0.35); Eosinophils % (A) 1.1 %; HCT 38.2 % (37.2-46.3); HGB 12.2 g/dL (12.0-15.0); Immature Grans, Automated 0.2 %; Lymphocytes # (A) 1.79 X 10*3/uL (0.90-5.00); MCH 30.2 pg (27.0-32.0); MCHC 31.9 g/dL (32.0-37.0); MCV 94.6 fL (80.0-97.0); Mean Platelet Volume 9.9 fL (9.5-12.2); Monocytes # (A) 0.49 X 10*3/uL (0.20-1.00); NRBC Per 100 WBC 0 /100 WBCS (0.0-0.0); Neutrophils # (A) 3.05 X 10*3/uL (1.80-7.70); Neutrophils % (A) 56.1 %; Platelet Count 230 X 10*3/uL (140-440); RBC 4.04 X 10*6/uL (4.10-5.20); RDW 13.4 % (11.5-14.5); WBC 5.43 X 10*3/uL (4.50-10.00)
[2023-01-04 11:27] LABS: ALT 31 U/L (8-44); AST 20 U/L (13-35); African American GFR (CKD) 92.9 (60.0-200.0); Albumin/Globulin Ratio 2.35 (1.60-3.17); Alkaline Phosphatase 59 U/L (41-126); BUN/Creat Ratio 22.88 Ratio (12.00-20.00); Blood Urea Nitrogen 18.3 mg/dL (9.0-27.0); Calcium 9.2 mg/dL (8.7-10.3); Carbon Dioxide 27.8 mmol/L (20.0-27.5); Chloride 107 mmol/L (96-109); Globulin 1.7 g/dL (1.6-3.3); Glucose 99 mg/dL (70-110); Non-African American GFR(CKD) 80.1 (60.0-200.0); Potassium 4.4 mmol/L (3.5-5.5); Sodium 143 mmol/L (135-145); Total Protein 5.7 g/dL (6.2-8.2)
[2023-01-04 11:28] LABS: Chol/HDL Ratio 2.16 Ratio; LDL Cholesterol,Calculated 69.5 mg/dL (0.0-131.0)
== END | disposition home or self-care (01) ==
LOC: LABWHC1 07:09
PROVIDERS: ATTEND Internal Medicine
DX: E78.5 Hyperlipidemia, unspecified (principal); Z00.00 Encounter for general adult medical examination without abnormal findings; F41.1 Generalized anxiety disorder; J45.20 Mild intermittent asthma, uncomplicated; J30.2 Other seasonal allergic rhinitis
CPT/HCPCS: 36415; 80053; 80061; 82306; 84439; 84443; 85025

== ENCOUNTER → 2023-08-02 | Outpatient (CLI) | payer BC, OTHER ==
--- NOTE | 2023-08-05 23:27 | MM ---
Reason for Exam: Screening (asymptomatic). Last mammogram was performed 1 year(s) and 2 month(s) ago. Patient History: Menarche at age 14. First Full-Term at age 22. Postmenopausal. Patient has history of breast feeding. Hormonal Contraceptives, starting at age 22 for 3 years. Risk Values: Glendy 5 year model risk: 1.3%. NCI Lifetime model risk: 6.4%. Prior Study Comparison: 03/24/2020 Bilateral Screening Mammogram, [facility]. 05/04/2021 Bilateral Screening Mammogram, [facility]. 05/16/2022 Bilateral MG 3D screening mammo w/cad, [facility]. Tissue Density: There are scattered fibroglandular densities. Findings: Analyzed By CAD. There is no suspicious group of microcalcifications or new suspicious mass in either breast. Overall Assessment: Negative, BI-RAD 1 Management: Screening Mammogram of both breasts in 1 year. . Patient should continue monthly self-breast exams. A clinical breast exam by your physician is recommended on an annual basis. This exam should not preclude additional follow-up of suspicious palpable abnormalities. Note on Glendy scores and lifetime risk: 1. A Glendy score greater than 3% is considered moderate risk. If this is the case, consider specialist referral to assess eligibility for a risk reducing agent. 2. If overall lifetime risk for the development of breast cancer is 20% or higher, the patient may qualify for future screening with alternating mammogram and breast MRI. Electronically signed and approved by: Shayy Hummel M.D. Radiologist
== END | disposition home or self-care (01) ==
LOC: RADMAMWWP 09:22
PROVIDERS: ATTEND Obstetrics & Gynecology
DX: Z12.31 Encounter for screening mammogram for malignant neoplasm of breast (principal); Z78.0 Asymptomatic menopausal state
CPT/HCPCS: 77063; 77067

== ENCOUNTER → 2024-02-14 | Outpatient (CLI) | payer BC, OTHER ==
[2024-02-14 10:44] LABS: Basophils # (A) 0.03 X 10*3/uL (0.00-0.10); Basophils % (A) 0.8 %; Eosinophils # (A) 0.05 X 10*3/uL (0.04-0.35); Eosinophils % (A) 1.4 %; HCT 42.3 % (37.2-46.3); HGB 14.3 g/dL (12.0-15.0); Lymphocytes # (A) 1.14 X 10*3/uL (0.90-5.00); Lymphocytes % (A) 31.1 %; MCH 31.5 pg (27.0-32.0); MCHC 33.8 g/dL (32.0-37.0); MCV 93.2 FL (80.0-97.0); Mean Platelet Volume 9.3 FL (9.5-12.2); Monocytes # (A) 0.29 X 10*3/uL (0.20-1.00); Monocytes % (A) 7.9 %; NRBC Per 100 WBC 0 X 10*3/uL (0.00-0.01); Neutrophils # (A) 2.15 X 10*3/uL (1.80-7.70); Neutrophils % (A) 58.5 %; Platelet Count 254 X 10*3/uL (140-440); RBC 4.54 X 10*6/uL (4.10-5.20); RDW 12.8 % (11.5-14.5); WBC 3.67 X 10*3/uL (4.50-10.00)
[2024-02-14 11:04] LABS: ALT 34 U/L (8-44); AST 27 U/L (13-35); Albumin 4.5 g/dL (3.8-4.9); Albumin/Globulin Ratio 2.37 Ratio (1.60-3.17); Alkaline Phosphatase 69 U/L (41-126); BUN/Creat Ratio 18.56 Ratio (12.00-20.00); Blood Urea Nitrogen 16.7 mg/dL (9.0-27.0); Calcium 9.4 mg/dL (8.7-10.3); Carbon Dioxide 26.1 mmol/L (21.6-31.8); Chloride 107 mmol/L (96-109); Chol/HDL Ratio 2.43 Ratio; Globulin 1.9 g/dL (1.6-3.3); Glucose 95 mg/dL (70-110); LDL Cholesterol,Calculated 85.9 mg/dL (0.0-131.0); Potassium 4.7 mmol/L (3.5-5.5); Sodium 144 mmol/L (135-145); T4, Free (Free Thyroxine) 1.15 ng/dL (0.80-1.80); Total Bilirubin 0.7 mg/dL (0.3-1.2); Total Protein 6.4 g/dL (6.2-8.2); VLDL Calculation 17.56 mg/dL (5.00-40.00)
== END | disposition home or self-care (01) ==
LOC: LABWHC1 07:14
PROVIDERS: ATTEND Internal Medicine
DX: E78.5 Hyperlipidemia, unspecified (principal); E55.9 Vitamin D deficiency, unspecified
CPT/HCPCS: 36415; 80053; 80061; 83036; 84439; 84443; 85025

== ENCOUNTER → 2024-08-26 | Outpatient (CLI) | payer OTHER ==
--- NOTE | 2024-08-26 15:15 | MM ---
Reason for Exam: Screening (asymptomatic). Last mammogram was performed 1 year(s) and 1 month(s) ago. Patient History: Menarche at age 14. First Full-Term at age 22. Postmenopausal. Patient has history of breast feeding. Hormonal Contraceptives, starting at age 22 for 3 years. Risk Values: Glendy 5 year model risk: 1.4%. NCI Lifetime model risk: 6.2%. Prior Study Comparison: 05/04/2021 Bilateral Screening Mammogram, [facility]. 05/16/2022 Bilateral MG 3D screening mammo w/cad, [facility]. 08/02/2023 Bilateral MG 3D screening mammo w/cad, [facility]. Tissue Density: There are scattered areas of fibroglandular density. Analyzed By CAD. Overall Assessment: Negative, BI-RAD 1 Management: Screening Mammogram of both breasts in 1 year. Electronically signed and approved by: Johann Fink M.D.
== END | disposition home or self-care (01) ==
LOC: RADMAMWWP 14:37
PROVIDERS: ATTEND Obstetrics & Gynecology
DX: Z12.31 Encounter for screening mammogram for malignant neoplasm of breast (principal); Z78.0 Asymptomatic menopausal state; R92.323 Mammographic fibroglandular density, bilateral breasts
CPT/HCPCS: 77063; 77067